=== PATIENT | female | born 1990 | race Caucasian/White ===

== ENCOUNTER 2018-09-30 12:56 | Emergency (ER) | payer MEDICAID, OTHER ==
[~2018-09-30] VITALS: Ht 162.6 cm; Wt 142.1 kg
[2018-09-30 13:29] VITALS: BP 136/80
== END 2018-09-30 15:26 | disposition home or self-care (01) ==
LOC: ED 15:15
DX: L03.114 Cellulitis of left upper limb (principal); F17.200 Nicotine dependence, unspecified, uncomplicated; Z88.2 Allergy status to sulfonamides
CPT/HCPCS: 82962; 99283

== ENCOUNTER 2018-10-04 11:18 | Emergency (ER) | payer MEDICAID ==
[~2018-10-04] VITALS: Ht 162.6 cm; Wt 138.8 kg
[2018-10-04 11:28] VITALS: BP 148/103
== END 2018-10-04 12:39 ==
LOC: ED 12:33
DX: L02.414 Cutaneous abscess of left upper limb (principal)
CPT/HCPCS: 99283